=== PATIENT | male | born 1970 | race Two or more races ===

== ENCOUNTER 2019-12-02 16:07 | Outpatient (CLI) | payer OTHER, SELFPAY ==
--- NOTE | ~2019-12-02 | XR_ITS ---
EXAMINATION: XR knee LT 2V DATE: 12/02/2019 16:42 INDICATION: Strain of unspecified muscle and tendon. TECHNIQUE: 2 views of left knee were obtained. COMPARISON: Left knee radiographs 10/12/2015 FINDINGS: Bone alignment is normal. No fracture. There is mild osteoarthritis of patellofemoral marques rtment. No knee joint effusion. IMPRESSION: 1. Mild right knee osteoarthritis. Reviewed, dictated and finalized at location A. [facility]
== END 2019-12-02 16:08 | disposition home or self-care (01) ==
PROVIDERS: PCP Emergency Medicine; Visit Provider Emergency Medicine
DX: S86.911A Strain of unspecified muscle(s) and tendon(s) at lower leg level, right leg, initial encounter (principal); X58.XXXA Exposure to other specified factors, initial encounter; M17.11 Unilateral primary osteoarthritis, right knee
CPT/HCPCS: 73560

== ENCOUNTER 2021-02-16 09:04 | Outpatient (CLI) | payer OTHER, SELFPAY ==
[2021-02-16 09:39] LABS: Alanine Aminotransferase 33 U/L (4-50); Albumin Level 4.5 g/dL (3.5-5.1); Alkaline Phosphatase 66 U/L (38-126); Anion Gap 4 mmol/L (8-16); Aspartate Amino Transferase 46 U/L (17-59); Bilirubin,Total 0.5 mg/dL (0.2-1.3); Blood Urea Nitrogen 18 mg/dL (9-20); Calcium 9.6 mg/dL (8.4-10.2); Carbon Dioxide 27 mmol/L (22-30); Chloride 108 mmol/L (98-107); Cholesterol 189 mg/dL (0-200); Estimated Glomerular Filt Rate 59; Glucose 104 mg/dL (75-110); HDL Direct 45 mg/dL; Potassium 4.4 mmol/L (3.4-5.0); Sodium 139 mmol/L (137-145); Triglycerides 148 mg/dL (<150)
[2021-02-16 09:50] LABS: LDL Cholesterol Direct 110 mg/dL
[2021-02-16 10:09] LABS: Prostate Specific Antigen 0.9 ng/mL (< OR = 4.0)
[2021-02-20 11:19] LABS: Testosterone Total 345 ng/dL (250-1100)
== END 2021-02-16 09:05 | disposition home or self-care (01) ==
PROVIDERS: PCP Emergency Medicine; Visit Provider Emergency Medicine
DX: Z12.5 Encounter for screening for malignant neoplasm of prostate (principal); Z13.220 Encounter for screening for lipoid disorders
CPT/HCPCS: 36415; 80053; 80061; 84153; 84402; 84403; G0103

== ENCOUNTER 2022-03-07 09:10 | Outpatient (CLI) | payer OTHER, SELFPAY ==
[2022-03-07 09:41] LABS: Alanine Aminotransferase 34 U/L (6-50); Albumin Level 4.7 g/dL (3.5-5.1); Alkaline Phosphatase 66 U/L (38-126); Anion Gap 9 mmol/L (8-16); Aspartate Amino Transferase 39 U/L (17-59); Bilirubin,Total 0.9 mg/dL (0.2-1.3); Blood Urea Nitrogen 15 mg/dL (9-20); Carbon Dioxide 25 mmol/L (22-30); Chloride 106 mmol/L (98-107); Estimated Glomerular Filt Rate 54; Glucose 103 mg/dL (65-110); Potassium 4.2 mmol/L (3.4-5.0); Sodium 140 mmol/L (137-145)
[2022-03-07 10:09] LABS: Prostate Specific Antigen 1.1 ng/mL (< OR = 4.0)
== END 2022-03-07 09:11 | disposition home or self-care (01) ==
LOC: ANHLAB 09:12
PROVIDERS: PCP Emergency Medicine; Visit Provider Emergency Medicine
DX: Z12.5 Encounter for screening for malignant neoplasm of prostate (principal); Z13.6 Encounter for screening for cardiovascular disorders
CPT/HCPCS: 36415; 80053; 84153; G0103

== ENCOUNTER 2023-02-22 08:01 | Outpatient (CLI) | payer OTHER, SELFPAY ==
[2023-02-22 08:38] LABS: Alanine Aminotransferase 44 U/L (6-50); Albumin Level 4.6 g/dL (3.5-5.1); Alkaline Phosphatase 69 U/L (38-126); Anion Gap 7 mmol/L (8-16); Aspartate Amino Transferase 43 U/L (17-59); Bilirubin,Total 0.9 mg/dL (0.2-1.3); Blood Urea Nitrogen 19 mg/dL (9-20); Calcium 8.6 mg/dL (8.4-10.2); Carbon Dioxide 25 mmol/L (22-30); Chloride 105 mmol/L (98-107); Cholesterol 193 mg/dL (0-200); Estimated Glomerular Filt Rate > 60; Glucose 107 mg/dL (65-110); HDL Direct 51 mg/dL; Potassium 3.9 mmol/L (3.4-5.0); Sodium 137 mmol/L (137-145); Triglycerides 231 mg/dL (<150)
[2023-02-22 08:49] LABS: LDL Cholesterol Direct 105 mg/dL
[2023-02-22 09:08] LABS: Prostate Specific Antigen 1.1 ng/mL (< OR = 4.0)
[2023-02-28 16:20] LABS: Vitamin D 1,25 (OH)2 Total 42 pg/mL (18-72); Vitamin D2 1,25 (OH)2 <8 pg/mL; Vitamin D3 1,25 (OH)2 42 pg/mL
[2023-03-03 18:10] LABS: Testosterone Free 60.8 pg/mL (35.0-155.0); Testosterone Total 283 ng/dL (250-1100)
== END 2023-02-22 08:02 | disposition home or self-care (01) ==
PROVIDERS: PCP Emergency Medicine; Visit Provider Emergency Medicine
DX: E55.9 Vitamin D deficiency, unspecified (principal); Z12.5 Encounter for screening for malignant neoplasm of prostate; E29.1 Testicular hypofunction
CPT/HCPCS: 36415; 80053; 80061; 82652; 84153; 84402; 84403; G0103

== ENCOUNTER 2024-03-18 09:52 | Outpatient (CLI) | payer OTHER, SELFPAY ==
[2024-03-18 10:29] LABS: Alanine Aminotransferase 31 U/L (6-50); Albumin Level 4.5 g/dL (3.5-5.1); Alkaline Phosphatase 69 U/L (38-126); Anion Gap 9 mmol/L (4-12); Aspartate Amino Transferase 35 U/L (17-59); Bilirubin,Total 0.7 mg/dL (0.2-1.3); Blood Urea Nitrogen 22 mg/dL (9-20); Calcium 8.9 mg/dL (8.4-10.2); Carbon Dioxide 23 mmol/L (22-30); Chloride 107 mmol/L (98-107); Cholesterol 195 mg/dL (0-200); Estimated Glomerular Filt Rate > 60; Glucose 105 mg/dL (65-110); HDL Direct 46 mg/dL; Potassium 4.2 mmol/L (3.4-5.0); Sodium 139 mmol/L (137-145); Triglycerides 209 mg/dL (<150)
[2024-03-18 10:40] LABS: LDL Cholesterol Direct 108 mg/dL
[2024-03-18 10:45] LABS: Vitamin D 25 Hydroxy 36.7 ng/mL
[2024-03-22 15:07] LABS: Testosterone Free 41.2 pg/mL (35.0-155.0); Testosterone Total 263 ng/dL (250-1100)
== END 2024-03-18 09:53 | disposition home or self-care (01) ==
LOC: ANHLAB 09:53
PROVIDERS: PCP Emergency Medicine; Visit Provider Emergency Medicine
DX: Z12.5 Encounter for screening for malignant neoplasm of prostate (principal); R79.89 Other specified abnormal findings of blood chemistry; E78.5 Hyperlipidemia, unspecified; E55.9 Vitamin D deficiency, unspecified
CPT/HCPCS: 36415; 80053; 80061; 82306; 84153; 84402; 84403; G0103

== ENCOUNTER 2024-10-11 00:42 | Day surgery (SDC) | payer OTHER, SELFPAY ==
[2024-09-26 09:11] VITALS: BMI 34.8
[2024-10-11 11:23] VITALS: BP 132/90; PULSE 68; RESP 18; TEMP 36.6; O2SAT 100
[2024-10-11] MEDS: LACTATED RINGERS 1,000 ML 150 ML IV CONT (11:31)
--- NOTE | 2024-10-11 11:44 | P.PNAN_ITS ---
Anes - Initial Pre Proc Eval Procedure: Operation Date: 10/11/24 12:30 Proposed Procedures p Screening Colonoscopy - Luis Enrique Chen MD Date/Time: 10/11/24 11:44 Surgeon: Luis Enrique Chen MD Pre Op Diagnosis: screening colon Patient Data Age: 53 Gender: M Height: 1.8 m Weight: 114.4 kg Last Vital Signs Temp 97.9 F 10/11/24 11:23 Pulse 68 10/11/24 11:23 Resp 18 10/11/24 11:23 BP 132/90 10/11/24 11:23 Pulse Ox 100 10/11/24 11:23 O2 Del Method Room Air 10/11/24 11:23 Allergies Allergy/AdvReac Type Severity Reaction Status Date / Time No Known Allergies Allergy Mild Verified 10/11/24 11:22 Home Medications ?Medication ?Instructions ?Recorded ?Confirmed ?Type cyclobenzaprine 10 mg tablet 10 mg PO TID PRN muscle spasm #21 03/13/24 09/26/24 Rx tabs sildenafil 50 mg tablet (Viagra) 50 mg PO DAILY PRN sexual activity 03/13/24 09/26/24 Rx #30 tabs Patient hx anesthesia problems: none Family hx anesthesia problems: none Results Review: All pre-operative results and documents have been reviewed as part of the pre- operative evaluation. [facility] Past Medical History Medical History Body mass index [BMI] 31.0-31.9, adult (11/22/16) Body mass index [BMI] 32.0-32.9, adult (10/25/16) Fatigue FHx: prostate cancer Generalized abdominal pain GERD (gastroesophageal reflux disease) Left knee pain Rash Sciatica of left side Tinea barbae Urinary dribbling Urinary frequency Vitamin D deficiency Family History Family History Father Hypertension Family history of cardiovascular disease Mother Hypertension Social History Social History Smoking status: Never smoker Alcohol intake: current Drinks per week: 5 Substance use type: does not use Current Housing: Decline to Answer Concerned About Future Housing: Decline to Answer Difficulty Paying Gas/Electric Bills: Decline to Answer Difficulty Paying for Meds: Decline to Answer Currently Unemployed: Decline to Answer Education: Decline to Answer Difficulty w/ Childcare or Family Care: Decline to Answer Living arrangements: with family Spiritual care concerns: No Anes - Eval Final PreProcedure Day of Procedure 10/11/24 11:44 Patient weight: obese Heart: regular rate and rhythm Lungs: clear to auscultation Airway: Mallampati scale class II Neurological: alert and oriented Last oral intake: >/= 8 hours ASA classification: II Emergent: no Anesthetic plan: proceed Anesthesia type and monitoring: general GIVS and standard monitoring Results Review: All pre-operative results and documents have been reviewed as part of the pre- operative evaluation. Informed Consent: The patient's anesthetic plan and its attendant risks and benefits were discussed with the patient/family/POA. Questions were solicited and answers provided to the satisfaction of the patient/family/POA.
--- NOTE | 2024-10-11 12:19 | PM.HPGS ---
History of Present Illness History of Present Illness Consent: Risks, benefits, and alternatives have been discussed and questions answered. Patient agrees to proceed with procedure. Chief complaint: screening colon Narrative: Natacha Powell is a 53 year old male here for first screening colonoscopy Review of Systems Review of Systems: All systems reviewed & are unremarkable except as noted in HPI and below PMFSH Past Medical History Medical History Body mass index [BMI] 31.0-31.9, adult (11/22/16) Body mass index [BMI] 32.0-32.9, adult (10/25/16) Fatigue FHx: prostate cancer Generalized abdominal pain GERD (gastroesophageal reflux disease) Left knee pain Rash Sciatica of left side Tinea barbae Urinary dribbling Urinary frequency Vitamin D deficiency Family History Family History Father Hypertension Family history of cardiovascular disease Mother Hypertension Social History Social History Smoking status: Never smoker Alcohol intake: current Drinks per week: 5 Substance use type: does not use Current Housing: Decline to Answer Concerned About Future Housing: Decline to Answer Difficulty Paying Gas/Electric Bills: Decline to Answer Difficulty Paying for Meds: Decline to Answer Currently Unemployed: Decline to Answer Education: Decline to Answer Difficulty w/ Childcare or Family Care: Decline to Answer Living arrangements: with family Spiritual care concerns: No Meds Home Medications and Allergies Home Medications ?Medication ?Instructions ?Recorded ?Confirmed ?Type cyclobenzaprine 10 mg tablet 10 mg PO TID PRN muscle spasm #21 03/13/24 09/26/24 Rx tabs sildenafil 50 mg tablet (Viagra) 50 mg PO DAILY PRN sexual activity 03/13/24 09/26/24 Rx #30 tabs Allergies Allergy/AdvReac Type Severity Reaction Status Date / Time No Known Allergies Allergy Mild Verified 10/11/24 11:22 Vital Signs Vital Signs - 24 hr 10/11/24 11:23 Temperature 97.9 F Pulse Rate 68 Respiratory Rate 18 Blood Pressure 132/90 Pulse Oximetry 100 Oxygen Delivery Room Air Exam Const: General: comfortable and no acute distress HENMT: Face/Nose/Sinus: Normal nares present Eyes: General: appearance normal, both eyes and all related structures Neck: Neck: no JVD Resp: Auscultation: clear to auscultation bilaterally Cardio: Rate: regular rate Rhythm: regular rhythm GI: Inspection: non-distended GI Palp: Yes Soft to palpation Skin: General skin exam: normal color Neuro: General: gait normal Speech: normal speech Extrem: General: normal to inspection Psych: Mental Status: mental status grossly normal Assessment and Plan Assessment and plan (1) Colon cancer screening: Code(s): Z12.11 - Encounter for screening for malignant neoplasm of colon Status: Acute Assessment and Plan: colonoscopy
[2024-10-11 12:29] VITALS: BP 106/66; PULSE 73; RESP 19; O2SAT 99
[2024-10-11 12:39] VITALS: BP 125/85; PULSE 73; RESP 21; O2SAT 100
[2024-10-11 12:49] VITALS: BP 118/77; PULSE 65; RESP 18; O2SAT 100
== END 2024-10-11 13:07 | disposition home or self-care (01) ==
PROVIDERS: PCP Emergency Medicine; Visit Provider Internal Medicine Gastroenterology
PROC: 0DJD8ZZ Inspection of Lower Intestinal Tract, Via Natural or Artificial Opening Endoscopic (ICD-10-PCS; CPT 45378; principal; 2024-10-11 12:30)
DX: Z12.11 Encounter for screening for malignant neoplasm of colon (principal); K21.9 Gastro-esophageal reflux disease without esophagitis; E55.9 Vitamin D deficiency, unspecified; R35.0 Frequency of micturition; N39.43 Post-void dribbling; E66.9 Obesity, unspecified; Z68.35 Body mass index [BMI] 35.0-35.9, adult; Z80.42 Family history of malignant neoplasm of prostate; Z82.49 Family history of ischemic heart disease and other diseases of the circulatory system
CPT/HCPCS: 45378; J2704; J7120

== ENCOUNTER 2025-03-14 11:08 | Outpatient (CLI) | payer OTHER, SELFPAY ==
--- NOTE | ~2025-03-14 | XR_ITS ---
Lumbosacral Spine: AP and lateral views Clinical History: Pain Findings: The normal lordotic curve is maintained. The vertebral bodies and posterior elements are i ntact. The intervertebral disc spaces are preserved. The sacroiliac joints are normally outlined. Impression: No significant abnormality. Reviewed, dictated and finalized at [facility]. Impression: No significant abnormality.
[2025-03-14 11:50] LABS: Alanine Aminotransferase 41 U/L (6-50); Albumin Level 4.4 g/dL (3.5-5.1); Alkaline Phosphatase 59 U/L (38-126); Anion Gap 7 mmol/L (4-12); Aspartate Amino Transferase 50 U/L (17-59); Bilirubin,Total 0.5 mg/dL (0.2-1.3); Blood Urea Nitrogen 15 mg/dL (9-20); Calcium 9.1 mg/dL (8.4-10.2); Carbon Dioxide 23 mmol/L (22-30); Chloride 108 mmol/L (98-107); Cholesterol 206 mg/dL (0-200); Estimated Glomerular Filt Rate > 60; Glucose 99 mg/dL (65-110); HDL Direct 52 mg/dL; Potassium 4.3 mmol/L (3.4-5.0); Sodium 138 mmol/L (137-145); Total Protein 7.4 g/dL (6.3-8.2); Triglycerides 123 mg/dL (<150)
[2025-03-14 12:01] LABS: LDL Cholesterol Direct 110 mg/dL
[2025-03-14 12:21] LABS: Prostate Specific Antigen 1.4 ng/mL (< OR = 4.0)
[2025-03-14 12:48] LABS: Vitamin D 25 Hydroxy 57.9 ng/mL
== END 2025-03-14 11:09 | disposition home or self-care (01) ==
LOC: ANHLAB 11:11
PROVIDERS: PCP Emergency Medicine; Visit Provider Emergency Medicine
DX: E55.9 Vitamin D deficiency, unspecified (principal); E78.5 Hyperlipidemia, unspecified; R97.20 Elevated prostate specific antigen [PSA]; M54.9 Dorsalgia, unspecified
CPT/HCPCS: 36415; 72100; 80053; 80061; 82306; 84153; G0103